=== PATIENT | male | born 1960 | race African-American/Black ===

== ENCOUNTER 2024-07-23 12:43 | Inpatient (IN) | payer MEDICAID ==
[~2024-07-23] VITALS: Ht 175.3 cm; Wt 60.5 kg
[2024-07-23 12:50] VITALS: BP_SYST 125; PULSE 93; RESP 18; TEMP 97; O2SAT 97
[2024-07-23] MEDS ORDERED: CALCIUM GLUC 1 GM/100ML-NACL 100 ML IV ONE (13:56)
[2024-07-23] MEDS ORDERED: DEXTROSE 50% JECT 50 ML DISP.SYRIN ONE (13:56)
[2024-07-23] MEDS ORDERED: SODIUM BICARBONATE 8.4% JECT 50 MEQ/50 ML SYRINGE ONE (13:56)
[2024-07-23] MEDS ORDERED: INSULIN REGULAR, HUMAN 10 UNITS/0.1 ML, 3 ML VIAL ONE (13:57)
[2024-07-23 14:05] LABS: INR 1.1 (0.80-1.20); PROTHROMBIN TIME 12.2 SECS (9.5-12.5)
[2024-07-23 14:14] LABS: ANION GAP 21 (5-15); BILIRUBIN,DIRECT 0.1 mg/dL (0.0-0.3); CALCIUM 8.4 mg/dL (8.4-11.0); CARBON DIOXIDE 17 mmol/L (23-29); CHLORIDE 99 mmol/L (98-107); CREATINE KINASE, TOTAL 103 U/L (39-308); GFR AFRICAN AMERICAN 5 mL/min (>90); GLUCOSE 131 mg/dL (74-106); SODIUM SERUM 137 mmol/L (136-145); TOTAL BILIRUBIN 0.4 mg/dL (0.0-1.0); TOTAL PROTEIN, SERUM 8.8 g/dL (6.4-8.3)
[2024-07-23] MEDS: CALCIUM CHLORIDE 1 GM/10 ML DISP.SYRIN (14 mEq Ca++/SYR) IVP ONE (14:17)
[2024-07-23] MEDS: DEXTROSE 50% JECT 50 ML DISP.SYRIN IVP ONE (14:17)
[2024-07-23] MEDS: SODIUM BICARBONATE 8.4% JECT 50 MEQ/50 ML SYRINGE IVP ONE (14:17)
[2024-07-23] MEDS: INSULIN REGULAR, HUMAN 10 UNITS/0.1 ML, 3 ML VIAL IVP ONE (14:17)
[2024-07-23 14:29] LABS: BASOPHILS % (AUTO) 0.4 % (0.0-2.0); EOSINOPHILS # (AUTO) 0.1 K/uL (0.0-0.4); EOSINOPHILS % (AUTO) 2.2 % (0.0-4.0); HEMATOCRIT 38.7 % (36-54); HEMOGLOBIN 11.8 g/dL (14.0-18.0); LYMPHOCYTES # (AUTO) 1.4 K/uL (1.0-5.5); LYMPHOCYTES % (AUTO) 27.4 % (20.5-51.5); MEAN CORPUSCULAR HEMOGLOBIN 23 pg (27-31); MEAN CORPUSCULAR HGB CONC 31 % (32-36); MEAN CORPUSCULAR VOLUME 77 fL (79.0-98.0); MONOCYTES # (AUTO) 0.3 K/uL (0.0-1.0); MONOCYTES % (AUTO) 5.7 % (1.7-9.3); NEUTROPHILS # (AUTO) 3.2 K/uL (1.8-7.7); NEUTROPHILS % (AUTO) 64.3 % (40.0-70.0); PLATELET COUNT (AUTO) 125 K/uL (130-430); RED BLOOD CELL COUNT(AUTO) 5.03 MIL/uL (4.2-6.2); WHITE BLOOD COUNT (AUTO) 5.1 K/uL (4.8-10.8)
[2024-07-23] MEDS: SODIUM POLYSTYRENE SULFONATE 15 GM/60 ML UDBTL PO ONE (14:29)
[2024-07-23 14:34] LABS: CREATININE 13.35 mg/dL (0.55-1.30); GFR NON AFRICAN-AMERICAN 4 mL/min (>90); POTASSIUM 9.7 mmol/L (3.5-5.1); UREA NITROGEN, BLOOD 142 mg/dL (8-21)
[2024-07-23 14:58] LABS: ASPARTATE AMINOTRANSFERASE 9 U/L (10-37)
[2024-07-23 15:15] LABS: ALANINE AMINOTRANSFERASE 8 U/L (12-78)
[2024-07-23] MEDS ORDERED: ASPI-524 PO (15:58)
[2024-07-23] MEDS ORDERED: PANT40TA45 PO (15:58)
[2024-07-23] MEDS ORDERED: LEVE1000 PO (15:58)
[2024-07-23] MEDS ORDERED: ATOR40TA68 PO (15:58)
[2024-07-23] MEDS ORDERED: METH-799 PO (15:58)
[2024-07-23] MEDS ORDERED: SEVE800T27 PO (15:58)
[2024-07-23] MEDS ORDERED: SUCR1TAB PO (15:58)
[2024-07-23] MEDS ORDERED: CLON0.1T PO ×2 (15:58→20:50)
[2024-07-23 21:36] VITALS: BP_SYST 106; PULSE 102; RESP 23; TEMP 98.6; O2SAT 95
[2024-07-23 22:00] VITALS: BP_SYST 111; PULSE 101; TEMP 98.6; O2SAT 95
[2024-07-23 22:21] LABS: ALBUMIN 3.3 g/dL (3.4-4.8); CALCIUM 8.3 mg/dL (8.4-11.0); CREATININE 7.09 mg/dL (0.55-1.30); POTASSIUM 3.8 mmol/L (3.5-5.1); TOTAL BILIRUBIN 0.6 mg/dL (0.0-1.0); TOTAL PROTEIN, SERUM 7.3 g/dL (6.4-8.3)
[2024-07-23] MEDS: ATORVASTATIN 20 MG TABLET PO SCH (22:39)
[2024-07-23] MEDS: SEVELAMER CARBONATE 800 MG TABLET PO SCH (22:39)
[2024-07-23 23:00] VITALS: BP_SYST 112; PULSE 96; O2SAT 97
[2024-07-24] VITALS (18 sets, daily range): BP systolic 79–135; PULSE 79–99; RESP 15–18; TEMP 96.9–98.7; O2SAT 75–98
[2024-07-24 06:31] LABS: BASOPHILS % (AUTO) 0.4 % (0.0-2.0); EOSINOPHILS # (AUTO) 0.1 K/uL (0.0-0.4); EOSINOPHILS % (AUTO) 2.3 % (0.0-4.0); HEMATOCRIT 33.3 % (36-54); HEMOGLOBIN 10.4 g/dL (14.0-18.0); LYMPHOCYTES # (AUTO) 1.1 K/uL (1.0-5.5); LYMPHOCYTES % (AUTO) 25.8 % (20.5-51.5); MEAN CORPUSCULAR HEMOGLOBIN 23 pg (27-31); MEAN CORPUSCULAR HGB CONC 31 % (32-36); MEAN CORPUSCULAR VOLUME 75 fL (79.0-98.0); MONOCYTES # (AUTO) 0.4 K/uL (0.0-1.0); MONOCYTES % (AUTO) 9.1 % (1.7-9.3); NEUTROPHILS # (AUTO) 2.7 K/uL (1.8-7.7); NEUTROPHILS % (AUTO) 62.4 % (40.0-70.0); PLATELET COUNT (AUTO) 115 K/uL (130-430); RED BLOOD CELL COUNT(AUTO) 4.44 MIL/uL (4.2-6.2); RED CELL DISTRIBUTION WIDTH 16.6 % (9.0-15.0); WHITE BLOOD COUNT (AUTO) 4.4 K/uL (4.8-10.8)
[2024-07-24 07:16] LABS: ALBUMIN 3.4 g/dL (3.4-4.8); CALCIUM 8.4 mg/dL (8.4-11.0); PHOSPHORUS 4.3 mg/dL (2.7-4.5); POTASSIUM 4.4 mmol/L (3.5-5.1); TOTAL BILIRUBIN 0.6 mg/dL (0.0-1.0); TOTAL PROTEIN, SERUM 7.6 g/dL (6.4-8.3)
[2024-07-24 07:37] LABS: CREATININE 8.06 mg/dL (0.55-1.30)
[2024-07-24] MEDS: SUCRALFATE 1 GM TABLET PO SCH (08:49)
[2024-07-24] MEDS: cloNIDine HCL 0.1 MG TABLET PO SCH (08:50)
[2024-07-24] MEDS: PANTOPRAZOLE SODIUM 40 MG TAB PO SCH (08:51)
[2024-07-24] MEDS: levETIRAcetam 500 MG TABLET PO SCH (08:52)
[2024-07-24] MEDS: methocarbamoL 500 MG TABLET PO SCH (09:00)
[2024-07-24] MEDS: ALBUMIN HUMAN 25% 200 ML IV ONE (12:15)
[2024-07-24] MEDS: ALBUMIN HUMAN 25% 100 ML IV ONE (12:20)
[2024-07-24] MEDS: MIDODRINE HCL 5 MG TABLET (PROAMATINE) PO SCH (17:16)
[2024-07-25] VITALS: BP_SYST 97; PULSE 89; RESP 18; TEMP 96.9; O2SAT 95
[2024-07-25 08:07] LABS: BASOPHILS % (AUTO) 0.5 % (0.0-2.0); EOSINOPHILS # (AUTO) 0.1 K/uL (0.0-0.4); EOSINOPHILS % (AUTO) 1.3 % (0.0-4.0); HEMATOCRIT 30.8 % (36-54); HEMOGLOBIN 9.5 g/dL (14.0-18.0); LYMPHOCYTES % (AUTO) 24.4 % (20.5-51.5); MEAN CORPUSCULAR HEMOGLOBIN 23 pg (27-31); MEAN CORPUSCULAR HGB CONC 31 % (32-36); MEAN CORPUSCULAR VOLUME 75 fL (79.0-98.0); MONOCYTES # (AUTO) 0.3 K/uL (0.0-1.0); MONOCYTES % (AUTO) 8.4 % (1.7-9.3); NEUTROPHILS # (AUTO) 2.6 K/uL (1.8-7.7); NEUTROPHILS % (AUTO) 65.4 % (40.0-70.0); PLATELET COUNT (AUTO) 90 K/uL (130-430); RED BLOOD CELL COUNT(AUTO) 4.08 MIL/uL (4.2-6.2); RED CELL DISTRIBUTION WIDTH 16.9 % (9.0-15.0); WHITE BLOOD COUNT (AUTO) 3.9 K/uL (4.8-10.8)
[2024-07-25 08:25] LABS: ALBUMIN 3.6 g/dL (3.4-4.8); CREATININE 5.87 mg/dL (0.55-1.30); POTASSIUM 4.2 mmol/L (3.5-5.1); TOTAL BILIRUBIN 0.6 mg/dL (0.0-1.0); TOTAL PROTEIN, SERUM 7.2 g/dL (6.4-8.3)
[2024-07-25 11:24] VITALS: BP_SYST 152; PULSE 78; RESP 15; TEMP 97.4; O2SAT 94
[2024-07-25 14:04] VITALS: BP_SYST 152; PULSE 78; RESP 15; TEMP 97.4; O2SAT 94
[2024-07-25 16:08] VITALS: BP_SYST 116; PULSE 75; RESP 15; TEMP 97.8; O2SAT 95
== END 2024-07-25 15:50 | DRG 425 ==
LOC: SED 12:43 → STU 15:40 → SIC 21:36 → STU 07-24 18:20
PROVIDERS: ADMIT Student in an Organized Health Care Education/Training Program; ATTEND Student in an Organized Health Care Education/Training Program
PROC: 5A1D70Z Performance of Urinary Filtration, Intermittent, Less than 6 Hours Per Day (ICD-10-PCS; principal; 2024-07-24)
DX: E87.5 Hyperkalemia (principal); J96.01 Acute respiratory failure with hypoxia; R65.11 Systemic inflammatory response syndrome (SIRS) of non-infectious origin with acute organ dysfunction; I12.0 Hypertensive chronic kidney disease with stage 5 chronic kidney disease or end stage renal disease; D63.1 Anemia in chronic kidney disease; N18.6 End stage renal disease; E11.22 Type 2 diabetes mellitus with diabetic chronic kidney disease; E78.5 Hyperlipidemia, unspecified; G40.909 Epilepsy, unspecified, not intractable, without status epilepticus; Z79.899 Other long term (current) drug therapy; Z88.8 Allergy status to other drugs, medicaments and biological substances; K21.9 Gastro-esophageal reflux disease without esophagitis; I25.10 Atherosclerotic heart disease of native coronary artery without angina pectoris; E11.51 Type 2 diabetes mellitus with diabetic peripheral angiopathy without gangrene; Z99.2 Dependence on renal dialysis; Z91.158 Patient's noncompliance with renal dialysis for other reason
CPT/HCPCS: 36415; 71045; 80048; 80053; 80076; 82550; 83037; 83605; 83735; 84100; 84484; 85025; 85610; 85730; 87081; 90935; 93005; 99291; G0378; J1815; J7030; P9046